=== PATIENT | male | born 1940 | race Caucasian/White ===

== ENCOUNTER 2019-06-21 17:35 | Inpatient (IN) ==
[2019-06-21] MEDS ORDERED: ALBUTEROL 2.5 MG/3 ML NEB RESP TX PRN (21:47)
[2019-06-21] MEDS ORDERED: DOCUSATE SODIUM 100 MG CAPSULE PO PRN (22:04)
[2019-06-21] MEDS ORDERED: ONDANSETRON 4 MG/2 ML VIAL IV PRN (22:04)
[2019-06-21] MEDS ORDERED: ACETAMINOPHEN 325 MG TABLET PO PRN (22:04)
[2019-06-21] MEDS: methylPREDNISolone SOD SUC 40 MG/1 ML VIAL IV SCH (23:00)
[2019-06-21] MEDS: DOXYCYCLINE HYCLATE INJ 100 MG in SODIUM CHLORIDE 0.9% 100 ML IV SCH (23:00)
[2019-06-22 00:52] LABS: INR 2.3
[2019-06-22 00:53] LABS: Albumin 3.2 G/DL (3.4-5.0); Bilirubin,Total 0.5 MG/DL (0.2-1.0); Calcium 8.5 MG/DL (8.5-10.1); Osmolality,Calculated 271.4 MOS/KG (273-304); Risk Ratio 4.58; Total Protein 6.5 G/DL (6.4-8.3)
[2019-06-22 00:55] LABS: PT Patient Result 24.4 SECS (9.6-12.2)
[2019-06-22 01:02] LABS: Basophils % 0.3 % (0.0-0.8); Hematocrit 42.5 VOL% (42.0-52.0); Hemoglobin 13.9 GM/DL (14.0-18.0); Immature Granulocytes % 0.8 %; Immature Granulocytes Absolute 0.03 #; Lymphocytes # 0.2 10*3/uL (1.4-4.0); Mean Corpuscular HGB Conc 32.7 GM/DL (32-36); Mean Platelet Volume 11.5 FL (9.6-12.0); Monocytes % 3.4 % (1.7-12.7); Neutrophils % 89.5 % (38.7-73.9); Platelet Count 148 T/CUMM (130-400); Red Blood Count 4.25 MC/CUMM (3.8-5.5); Red Cell Distribution Width 13.4 % (9.3-17.3); White Blood Count 3.8 T/CUMM (4-12)
[2019-06-22] MEDS: ALBUTEROL/IPRATROPIUM 3 ML NEB RESP TX SCH ×4 (01:40→19:15)
[2019-06-22] MEDS: methylPREDNISolone SOD SUC 40 MG/1 ML VIAL IV SCH ×3 (05:30→21:45)
[2019-06-22] MEDS ORDERED: FUROSEMIDE 40 MG/4 ML VIAL IV SCH ×3 (08:00→16:00)
[2019-06-22] MEDS ORDERED: ASPIRIN EC 81 MG TABLET PO SCH (09:00)
[2019-06-22] MEDS: DOXYCYCLINE HYCLATE INJ 100 MG in SODIUM CHLORIDE 0.9% 100 ML IV SCH ×2 (09:10→22:15)
[2019-06-22] MEDS: ASPIRIN EC 325 MG TABLET PO SCH (13:28)
[2019-06-22] MEDS ORDERED: carvediloL 3.125 MG TABLET PO SCH (21:00)
[2019-06-22] MEDS ORDERED: DILTIAZEM 25 MG/5 ML VIAL IV ONE (21:27)
[2019-06-22] MEDS: ROSUVASTATIN 20 MG TABLET PO SCH (21:45)
[2019-06-22] MEDS: dilTIAZem Drip 125 MG/125 ML PREMIX IV SCH (21:45)
[2019-06-23] MEDS: ALBUTEROL/IPRATROPIUM 3 ML NEB RESP TX SCH ×4 (00:47→19:14)
[2019-06-23 05:05] LABS: Basophils % 0.1 % (0.0-0.8); Hematocrit 41.3 VOL% (42.0-52.0); Hemoglobin 13.5 GM/DL (14.0-18.0); Immature Granulocytes % 0.5 %; Immature Granulocytes Absolute 0.06 #; Lymphocytes # 0.4 10*3/uL (1.4-4.0); Lymphocytes % 3.1 % (21.2-54.2); Mean Corpuscular HGB Conc 32.7 GM/DL (32-36); Mean Corpuscular Volume 97.2 FL (87-102); Mean Platelet Volume 11.7 FL (9.6-12.0); Monocytes % 6.6 % (1.7-12.7); Neutrophils % 89.7 % (38.7-73.9); Platelet Count 166 T/CUMM (130-400); Red Blood Count 4.25 MC/CUMM (3.8-5.5); Red Cell Distribution Width 13.6 % (9.3-17.3); White Blood Count 12.1 T/CUMM (4-12)
[2019-06-23 05:10] LABS: INR 1.6; PT Patient Result 16.8 SECS (9.6-12.2)
[2019-06-23 05:27] LABS: Band Neutrophils 5 % (0-10); Hypochromasia Slight; Lymphocytes 4 % (20-55); Macrocytosis Slight; Segmented Neutrophils 88 % (50-85); Total Cells Counted 100
[2019-06-23 05:28] LABS: Platelet Estimate Adequate
[2019-06-23 05:39] LABS: Calcium 8.7 MG/DL (8.5-10.1); Osmolality,Calculated 280.2 MOS/KG (273-304)
[2019-06-23] MEDS: methylPREDNISolone SOD SUC 40 MG/1 ML VIAL IV SCH ×3 (05:57→21:11)
[2019-06-23] MEDS ORDERED: WARFARIN 7.5 MG TABLET PO ONE (06:30)
[2019-06-23] MEDS ORDERED: AMIODARONE INJ 150 MG in DEXTROSE 5% 100 ML IV ONE (06:31)
[2019-06-23] MEDS ORDERED: AMIODARONE INJ 450 MG in DEXTROSE 5% 241 ML IV SCH (07:00)
[2019-06-23] MEDS: ASPIRIN EC 325 MG TABLET PO SCH (09:15)
[2019-06-23] MEDS: DOXYCYCLINE HYCLATE INJ 100 MG in SODIUM CHLORIDE 0.9% 100 ML IV SCH ×2 (09:15→21:07)
[2019-06-23] MEDS: lisinopriL 2.5 MG TABLET PO SCH (09:15)
[2019-06-23] MEDS: ROFLUMILAST 500 MCG TABLET PO SCH (09:15)
[2019-06-23] MEDS: AMIODARONE INJ 450 MG in DEXTROSE 5% 241 ML IV SCH ×3 (15:26→21:19)
[2019-06-23] MEDS: WARFARIN 5 MG TABLET PO SCH (17:19)
[2019-06-23] MEDS ORDERED: ENOXAPARIN 100 MG/ML SYRINGE SUBCUT SCH (21:00)
[2019-06-23] MEDS: ROSUVASTATIN 20 MG TABLET PO SCH (21:11)
[2019-06-23] MEDS: dilTIAZem Drip 125 MG/125 ML PREMIX IV SCH (21:19)
[2019-06-24] MEDS: ALBUTEROL/IPRATROPIUM 3 ML NEB RESP TX SCH ×4 (01:37→20:07)
[2019-06-24 04:57] LABS: Basophils % 0.1 % (0.0-0.8); Hematocrit 40.1 VOL% (42.0-52.0); Hemoglobin 12.8 GM/DL (14.0-18.0); Immature Granulocytes % 0.6 %; Immature Granulocytes Absolute 0.07 #; Lymphocytes # 0.3 10*3/uL (1.4-4.0); Mean Corpuscular HGB Conc 31.9 GM/DL (32-36); Mean Corpuscular Volume 99.8 FL (87-102); Mean Platelet Volume 11.1 FL (9.6-12.0); Monocytes % 5.5 % (1.7-12.7); Neutrophils % 90.8 % (38.7-73.9); Platelet Count 162 T/CUMM (130-400); Red Blood Count 4.02 MC/CUMM (3.8-5.5); Red Cell Distribution Width 13.7 % (9.3-17.3)
[2019-06-24 05:23] LABS: Band Neutrophils 3 % (0-10); Hypochromasia Slight; Lymphocytes 2 % (20-55); Macrocytosis Slight; Segmented Neutrophils 90 % (50-85); Total Cells Counted 100
[2019-06-24 05:24] LABS: Platelet Estimate Adequate
[2019-06-24 05:29] LABS: Calcium 8.9 MG/DL (8.5-10.1); Osmolality,Calculated 281.8 MOS/KG (273-304)
[2019-06-24] MEDS: methylPREDNISolone SOD SUC 40 MG/1 ML VIAL IV SCH ×3 (05:31→22:57)
[2019-06-24 05:50] LABS: INR 1.8; PT Patient Result 19.6 SECS (9.6-12.2)
[2019-06-24] MEDS: lisinopriL 2.5 MG TABLET PO SCH (08:29)
[2019-06-24] MEDS: AMIODARONE 200 MG TABLET PO SCH (08:29)
[2019-06-24] MEDS: ROFLUMILAST 500 MCG TABLET PO SCH (08:30)
[2019-06-24] MEDS: FUROSEMIDE 40 MG TABLET PO SCH (08:30)
[2019-06-24] MEDS: ASPIRIN EC 325 MG TABLET PO SCH (08:30)
[2019-06-24] MEDS: DOXYCYCLINE HYCLATE INJ 100 MG in SODIUM CHLORIDE 0.9% 100 ML IV SCH ×2 (09:28→21:50)
[2019-06-24] MEDS ORDERED: ALUM/MAG/SIMETH/LIDO VISC 1:1 30 ML BOTTLE PO ONE (10:33)
[2019-06-24] MEDS: WARFARIN 5 MG TABLET PO SCH (18:02)
[2019-06-24] MEDS: ROSUVASTATIN 20 MG TABLET PO SCH (21:45)
[2019-06-25] MEDS: ALBUTEROL/IPRATROPIUM 3 ML NEB RESP TX SCH ×4 (00:36→20:39)
[2019-06-25 05:29] LABS: INR 3.6
[2019-06-25 05:35] LABS: PT Patient Result 39.2 SECS (9.6-12.2)
[2019-06-25 06:04] LABS: Osmolality,Calculated 285.4 MOS/KG (273-304)
[2019-06-25] MEDS: ASPIRIN EC 325 MG TABLET PO SCH (08:34)
[2019-06-25] MEDS: FUROSEMIDE 40 MG TABLET PO SCH (08:34)
[2019-06-25] MEDS: lisinopriL 2.5 MG TABLET PO SCH (08:34)
[2019-06-25] MEDS: AMIODARONE 200 MG TABLET PO SCH (08:34)
[2019-06-25] MEDS: predniSONE 20 MG TABLET PO SCH (08:35)
[2019-06-25] MEDS: DOXYCYCLINE HYCLATE INJ 100 MG in SODIUM CHLORIDE 0.9% 100 ML IV SCH ×2 (09:01→22:02)
[2019-06-25] MEDS: ROFLUMILAST 500 MCG TABLET PO SCH (09:01)
[2019-06-25] MEDS ORDERED: FUROSEMIDE 40 MG/4 ML VIAL IV ONE (11:02)
[2019-06-25] MEDS: CALCIUM CARBONATE CHEW 500 MG TABLET PO PRN (16:45)
[2019-06-25] MEDS: WARFARIN 5 MG TABLET PO SCH (17:01)
[2019-06-25] MEDS: ROSUVASTATIN 20 MG TABLET PO SCH (21:58)
[2019-06-26] MEDS: ALBUTEROL/IPRATROPIUM 3 ML NEB RESP TX SCH ×4 (01:53→20:25)
[2019-06-26 04:54] LABS: Basophils % 0.2 % (0.0-0.8); Hematocrit 40.3 VOL% (42.0-52.0); Hemoglobin 13.4 GM/DL (14.0-18.0); Immature Granulocytes Absolute 0.11 #; Lymphocytes % 8.9 % (21.2-54.2); Mean Corpuscular HGB Conc 33.3 GM/DL (32-36); Mean Corpuscular Volume 97.8 FL (87-102); Mean Platelet Volume 11.7 FL (9.6-12.0); Monocytes % 15.4 % (1.7-12.7); Neutrophils % 74.5 % (38.7-73.9); Platelet Count 176 T/CUMM (130-400); Red Blood Count 4.12 MC/CUMM (3.8-5.5); White Blood Count 11.3 T/CUMM (4-12)
[2019-06-26 04:58] LABS: Calcium 9.1 MG/DL (8.5-10.1); Osmolality,Calculated 278.8 MOS/KG (273-304)
[2019-06-26 05:16] LABS: INR 4.9
[2019-06-26 05:24] LABS: PT Patient Result 52.2 SECS (9.6-12.2)
[2019-06-26] MEDS: CALCIUM CARBONATE CHEW 500 MG TABLET PO PRN ×2 (06:23→12:16)
[2019-06-26] MEDS: FUROSEMIDE 40 MG TABLET PO SCH (08:33)
[2019-06-26] MEDS: lisinopriL 2.5 MG TABLET PO SCH (08:33)
[2019-06-26] MEDS: predniSONE 20 MG TABLET PO SCH (08:34)
[2019-06-26] MEDS: ASPIRIN EC 325 MG TABLET PO SCH (08:34)
[2019-06-26] MEDS: ROFLUMILAST 500 MCG TABLET PO SCH (08:34)
[2019-06-26] MEDS: AMIODARONE 200 MG TABLET PO SCH (08:34)
[2019-06-26] MEDS: DOXYCYCLINE HYCLATE INJ 100 MG in SODIUM CHLORIDE 0.9% 100 ML IV SCH ×2 (09:25→22:22)
[2019-06-26] MEDS: ROSUVASTATIN 20 MG TABLET PO SCH (22:15)
[2019-06-27] MEDS: ALBUTEROL/IPRATROPIUM 3 ML NEB RESP TX SCH ×4 (01:16→19:18)
[2019-06-27 04:19] LABS: Basophils # 0.1 10*3/uL (0.0-0.2); Basophils % 0.7 % (0.0-0.8); Eosinophils % 0.1 % (0.00-10.9); Hematocrit 43.1 VOL% (42.0-52.0); Hemoglobin 14.2 GM/DL (14.0-18.0); Immature Granulocytes % 2.3 %; Immature Granulocytes Absolute 0.24 #; Lymphocytes # 1.5 10*3/uL (1.4-4.0); Lymphocytes % 14.4 % (21.2-54.2); Mean Corpuscular HGB Conc 32.9 GM/DL (32-36); Mean Corpuscular Volume 97.7 FL (87-102); Mean Platelet Volume 11.4 FL (9.6-12.0); Monocytes % 14.2 % (1.7-12.7); Neutrophils % 68.3 % (38.7-73.9); Platelet Count 181 T/CUMM (130-400); Red Blood Count 4.41 MC/CUMM (3.8-5.5); White Blood Count 10.4 T/CUMM (4-12)
[2019-06-27 04:30] LABS: INR 4.2
[2019-06-27 04:37] LABS: Calcium 8.9 MG/DL (8.5-10.1); Osmolality,Calculated 282.7 MOS/KG (273-304)
[2019-06-27 04:59] LABS: PT Patient Result 44.8 SECS (9.6-12.2)
[2019-06-27] MEDS: ROFLUMILAST 500 MCG TABLET PO SCH (08:43)
[2019-06-27] MEDS: ASPIRIN EC 325 MG TABLET PO SCH (08:44)
[2019-06-27] MEDS: AMIODARONE 200 MG TABLET PO SCH (08:44)
[2019-06-27] MEDS: FUROSEMIDE 40 MG TABLET PO SCH (08:44)
[2019-06-27] MEDS: lisinopriL 2.5 MG TABLET PO SCH (08:44)
[2019-06-27] MEDS: predniSONE 20 MG TABLET PO SCH (08:44)
[2019-06-27] MEDS: DILTIAZEM CD 120 MG CAPSULE PO SCH ×2 (08:44→21:43)
[2019-06-27] MEDS: NEBIVOLOL 10 MG TABLET PO SCH (08:44)
[2019-06-27] MEDS: CALCIUM CARBONATE CHEW 500 MG TABLET PO PRN (08:49)
[2019-06-27] MEDS: DOXYCYCLINE HYCLATE INJ 100 MG in SODIUM CHLORIDE 0.9% 100 ML IV SCH ×2 (10:28→21:38)
[2019-06-27] MEDS: ROSUVASTATIN 20 MG TABLET PO SCH (21:42)
[2019-06-28] MEDS: ALBUTEROL/IPRATROPIUM 3 ML NEB RESP TX SCH ×2 (01:30→08:14)
[2019-06-28 04:59] LABS: Basophils # 0.1 10*3/uL (0.0-0.2); Basophils % 0.4 % (0.0-0.8); Eosinophils % 0.2 % (0.00-10.9); Hematocrit 47.6 VOL% (42.0-52.0); Hemoglobin 14.8 GM/DL (14.0-18.0); Immature Granulocytes % 2.9 %; Immature Granulocytes Absolute 0.36 #; Lymphocytes # 1.6 10*3/uL (1.4-4.0); Lymphocytes % 13.2 % (21.2-54.2); Mean Corpuscular HGB Conc 31.1 GM/DL (32-36); Mean Corpuscular Volume 102.1 FL (87-102); Mean Platelet Volume 11.6 FL (9.6-12.0); Monocytes % 11.3 % (1.7-12.7); Platelet Count 224 T/CUMM (130-400); Red Blood Count 4.66 MC/CUMM (3.8-5.5); White Blood Count 12.3 T/CUMM (4-12)
[2019-06-28 05:29] LABS: PT Patient Result 43.3 SECS (9.6-12.2)
[2019-06-28 08:04] VITALS: BP 132/60
[2019-06-28] MEDS: ROFLUMILAST 500 MCG TABLET PO SCH (08:54)
[2019-06-28] MEDS: NEBIVOLOL 10 MG TABLET PO SCH (08:55)
[2019-06-28] MEDS: AMIODARONE 200 MG TABLET PO SCH (08:55)
[2019-06-28] MEDS: lisinopriL 2.5 MG TABLET PO SCH (08:55)
[2019-06-28] MEDS: DILTIAZEM CD 120 MG CAPSULE PO SCH (08:55)
[2019-06-28] MEDS: ASPIRIN EC 325 MG TABLET PO SCH (08:55)
[2019-06-28] MEDS: FUROSEMIDE 40 MG TABLET PO SCH (08:55)
[2019-06-28] MEDS ORDERED: POTASSIUM CHLORIDE 20 MEQ TABLET PO SCH (09:00)
[2019-06-28] MEDS ORDERED: predniSONE 20 MG TABLET PO SCH (09:00)
[2019-06-28] MEDS: DOXYCYCLINE HYCLATE INJ 100 MG in SODIUM CHLORIDE 0.9% 100 ML IV SCH (09:00)
[2019-07-01] MEDS ORDERED: predniSONE 20 MG TABLET PO SCH (09:00)
[2019-07-04] MEDS ORDERED: predniSONE 10 MG TABLET PO SCH (09:00)
== END 2019-06-28 11:41 | disposition home or self-care (01) | DRG 291 ==
LOC: SUATTDRO 19:47 → N.TELEN 19:47
PROVIDERS: ADMIT Internal Medicine; ATTEND Internal Medicine Geriatric Medicine